=== PATIENT | female | born 1945 | race Caucasian/White ===

== ENCOUNTER → 2017-04-19 | Outpatient (CLI) | payer OTHER, BC ==
[~2017-04-19] MED LIST: OPTIRAY 320 IV PRN
--- NOTE | 2017-04-19 12:26 | DIAGNOSTIC IMAGING REPORT ---
CT SCAN OF THE ABDOMEN AND PELVIS WITH IV CONTRAST CLINICAL HISTORY: Small bowel obstruction. Diarrhea. COMPARISON STUDY: No priors. TECHNIQUE: Following the IV administration of 93 cc of Optiray 320, CT scan of the abdomen and pelvis is performed from the lung bases to the proximal femora. Images are reviewed in the axial, sagittal, and coronal planes. IV contrast was administered without complication. A dose lowering technique was utilized adhering to the principles of ALARA. CT DOSE: 578.69 mGy.cm FINDINGS: Lung bases: The heart is normal in size and without pericardial effusion. Fat-containing Bochdalek hernias are seen at both lung bases. There are trace pleural effusions. Foci of scarring versus atelectasis are seen in the lower lobes. No airspace consolidation is seen typical for pneumonia. A tiny hiatal hernia is noted. Liver: The contrast-enhanced liver is enlarged, measuring 22 cm in length. The liver demonstrates diffusely diminished attenuation consistent with hepatic steatosis. There is no intrahepatic biliary ductal dilatation. The hepatic veins and portal veins are patent. A 1.3 cm cyst is noted in the left lobe. Gallbladder: Surgically absent noting clips in the gallbladder fossa. Spleen: The spleen is enlarged, measuring 14.8 cm in length. Pancreas: Unremarkable. Adrenal glands: Unremarkable. Kidneys: The contrast enhanced kidneys demonstrate cortical atrophy. There is mild bilateral hydronephrosis. The ureters are normal in caliber. The kidneys enhance symmetrically. Scattered subcentimeter cortical hypodensities likely represent cysts but are too small for definitive characterization. Abdominal vasculature: The abdominal aorta is normal in course and caliber noting mild to moderate atherosclerotic calcification. Bowel: There is no bowel obstruction. Enteric contrast reaches the rectum. Mild wall thickening and fold thickening is suggested involving the right colon, greatest in the cecum. The appendix is not identified and reported surgically absent. Peritoneum: There is no intraperitoneal free air or abdominal ascites. Lymphadenopathy: There are mildly enlarged upper abdominal lymph nodes. Nodes in the arnaud hepatis measure up to 1.5 cm in short axis. An aortocaval node measures 1.1 cm in short axis. Shotty retroperitoneal lymph nodes are identified. These are subcentimeter in size. Pelvic viscera: The bladder is normal as visualized. The uterus is surgically absent. No adnexal lesion is seen. Skeletal structures: The skeletal structures are osteopenic. There is mild lumbosacral spondylosis and scoliosis. No lytic or blastic lesions are seen. IMPRESSION: 1. There is mild bilateral hydronephrosis. The ureters are normal in caliber and no cause of obstruction is apparent. Clinical correlation will be required. 2. Mild wall thickening and fold thickening is suggested involving the cecum and right colon. Correlate clinically for evidence of a mild nonspecific colitis. No bowel obstruction is seen. 3. Hepatomegaly and hepatic steatosis. 4. Splenomegaly. 5. Trace pleural effusions. 6. Mildly enlarged lymph nodes in the upper abdomen are nonspecific and may be related to hepatic steatosis. 7. Additional findings as above. Electronically signed by: Jude Borges M.D. 04/19/2017 12:25 PM Dictated Date/Time: 04/19/2017 12:15 PM
== END | disposition home or self-care (01) ==
LOC: C.CTS 09:43
PROVIDERS: ATTEND Colon & Rectal Surgery
DX: R19.7 Diarrhea, unspecified (principal)

== ENCOUNTER → 2017-04-22 | Outpatient (CLI) | payer OTHER, BC ==
--- NOTE | 2017-04-22 09:00 | DIAGNOSTIC IMAGING REPORT ---
SINGLE CONTRAST GASTROGRAFIN ENEMA CLINICAL HISTORY: Chronic diarrhea. Reported history of previous colonic rupture. COMPARISON STUDY: Abdominal CT dated 04/19/2017. PROCEDURE: A advance scout radiograph is obtained. A catheter was placed into the rectum and a single contrast barium enema is performed by infusing approximately 600 cc of dilute Gastroview into the colon under gravity. Spot fluoroscopic views of the colon were obtained in multiple obliquities. Overhead radiographs are performed pre and postevacuation in multiple obliquities. FINDINGS: An abdominal advance scout radiograph shows a nonobstructed abdominal bowel gas pattern. Cholecystectomy clips are seen in the right upper quadrant. There are numerous calcified phleboliths in the pelvis. The skeletal structures are osteopenic. Mild lumbosacral spondylosis is observed. On the enema images there is smooth contrast opacification of the colon which is normal in caliber and position. There is no evidence of mass lesion or stricture on this single contrast examination. No evidence of mucosal lesion is identified. There is no evidence of wall thickening. No significant diverticular disease is seen. IMPRESSION: No significant colonic abnormality is seen on this single contrast Gastrografin enema. Dictated: 04/22/2017 8:31 AM Transcribed: 04/22/2017 9:00 AM Vinay Electronically signed by: Jude Borges M.D. 04/22/2017 9:07 AM Dictated Date/Time: 04/22/2017 8:31 AM
== END | disposition home or self-care (01) ==
LOC: C.RAD 07:26
PROVIDERS: ATTEND Colon & Rectal Surgery
DX: R19.7 Diarrhea, unspecified (principal)

== ENCOUNTER 2017-05-20 13:14 | Day surgery (SDC) | payer OTHER, BC ==
[2017-05-11 10:14] VITALS: Ht 152.4 cm; Wt 69.1 kg
[~2017-05-20] VITALS: Ht 152.4 cm; Wt 69.1 kg
[~2017-05-20 13:14] MED LIST changes: +CHOL1000 PO; +DIAZ5TAB PO; +GABA1CAP5 PO; +MIRT45TA3 PO; +OMEP40CA41 PO; -OPTIRAY 320 IV PRN; +QUET1TAB37 PO; +TEMO1CAP11 PO; +VITAMIN B12 INJ; +VNTHFA/IN INH; +ZOLP12.5 PO
[2017-05-20] MEDS ORDERED: SUCCINYLCHOLINE CHLORIDE 20 MG/ML 10 ML VIAL IV ONE (13:55)
[2017-05-20] MEDS ORDERED: PROPOFOL IV EMULSION 10 MG/ML 20 ML VIAL IV ONE (13:55)
[2017-05-20] MEDS ORDERED: LIDOCAINE 2% 20 MG/ML 5ML SYR IV ONE (13:55)
--- NOTE | 2017-05-20 14:03 | Endo History and Physical ---
History & Physical Date of Service: May 20, 2017. Chief Complaint: abnormal CT Referring Physician: Dr. Zoran Staley History of Present Illness For colonoscopy Past Surgical History Hx Cardiac Surgery: No Hx Internal Defibrillator: No Hx Pacemaker: No Hx Abdominal Surgery: Yes (GRACE BSO, COLON RESECTION X 2 (RUPTURE REPAIR), LYSIS OF ADHESIONS X 4) Hx of Implantable Prosthesis: No Hx Post-Op Nausea and Vomiting: No Hx Cancer Surgery: No Hx Thoracic Surgery: No Family History Colon CA Social History Smoking Status: Never Smoker Hx Substance Use: No Hx Alcohol Use: No Allergies Coded Allergies: Acetaminophen (Verified Allergy, Unknown, VOMITTING, 05/11/17) Codeine (Verified Allergy, Unknown, HEADACHE, VOMITTING, 05/11/17) Erythromycin (Verified Allergy, Unknown, ANAPHYLAXIS, 05/11/17) Influenza Vaccines (Verified Allergy, Unknown, "HAS A REACTION, NOT ALLOWED TO GET", 05/11/17) Morphine (Verified Allergy, Unknown, SEVERE HEADACHE, VOMITTING, 05/11/17) Oxycodone (Verified Allergy, Unknown, VOMITTING, 05/11/17) Uncoded Allergies: DARVOCET (Allergy, Unknown, SEVERE HEADACHE, 05/11/17) Current Medications Reported Home Medications Medications Dose Route/Sig Max Daily Dose Days Date Category Ventolin Hfa (Albuterol) 200 Puffs/80183 Mcg Aers 2-4 Puffs INH Q6H PRN 05/11/17 Reported Temodar (Temozolomide) 5 Mg Cap 1 Cap PO HS 05/11/17 Reported Prilosec (Omeprazole) 40 Mg Cap 40 Mg PO QAM 05/11/17 Reported [Vitamin B12] 1 Dose INJ MONTHLY 05/11/17 Reported Vitamin D3 (Cholecalciferol) 1,000 Unit Tab 1 Tab PO DAILY 05/11/17 Reported Ambien Cr (Zolpidem Tartrate) 12.5 Mg Tabcr 12.5 Mg PO HS 05/11/17 Reported Valium (Diazepam) 5 Mg Tab 5 Mg PO 5XD PRN 05/11/17 Reported Mirtazapine 45 Mg Tab 1 Tab PO QPM 05/11/17 Reported Seroquel (Quetiapine Fumarate) 300 Mg Tab 300 Mg PO HS 05/11/17 Reported Neurontin (Gabapentin) 400 Mg Cap 400 Mg PO TID 05/11/17 Reported Vital Signs Weight (Kilograms): 69.09 Height (Feet): 5 Height (Inches): 0 Date Time Temp Pulse Resp B/P (MAP) Pulse Ox O2 Delivery O2 Flow Rate FiO2 05/20/17 13:49 37 84 18 137/70 (92) 95 Room Air Physical Exam General Appearance: + obese Respiratory/Chest: Respiratory effort: no dyspnea Cardiovascular: Heart Auscultation: RRR Abdomen: Inspection & Palpation: LUQ tenderness Assessment and Plan Abd pain for colonoscopy
[2017-05-20] MEDS ORDERED: MIDAZOLAM HCL 1 MG/ML 2ML VIAL ONE (14:18)
[2017-05-20] MEDS ORDERED: FENTANYL CITRATE INJ 50 MCG/1 ML 2 ML VIAL ONE ×2 (14:35→15:21)
[2017-05-20] MEDS ORDERED: DEXAMETHASONE SOD INJ 4 MG/ML VIAL ONE (14:48)
[2017-05-20] MEDS ORDERED: ONDANSETRON INJ 2 MG/ML 2 ML VIAL ONE (14:48)
--- NOTE | 2017-05-20 15:05 | Discharge Instructions ---
Endoscopy Patient Instructions Date / Procedure(s) Performed May 20, 2017. Colonoscopy Allergy Information Coded Allergies: Acetaminophen (Verified Allergy, Unknown, VOMITTING, 05/11/17) Codeine (Verified Allergy, Unknown, HEADACHE, VOMITTING, 05/11/17) Erythromycin (Verified Allergy, Unknown, ANAPHYLAXIS, 05/11/17) Influenza Vaccines (Verified Allergy, Unknown, "HAS A REACTION, NOT ALLOWED TO GET", 05/11/17) Morphine (Verified Allergy, Unknown, SEVERE HEADACHE, VOMITTING, 05/11/17) Oxycodone (Verified Allergy, Unknown, VOMITTING, 05/11/17) Uncoded Allergies: DARVOCET (Allergy, Unknown, SEVERE HEADACHE, 05/11/17) Discharge Date / Findings May 20, 2017. Normal colon, perianal skin irritation Medication Instructions Restart Stopped Medication(s): resume meds Reported Home Medications Medications Dose Route/Sig Max Daily Dose Days Date Category Ventolin Hfa (Albuterol) 200 Puffs/93847 Mcg Aers 2-4 Puffs INH Q6H PRN 05/11/17 Reported Temodar (Temozolomide) 5 Mg Cap 1 Cap PO HS 05/11/17 Reported Prilosec (Omeprazole) 40 Mg Cap 40 Mg PO QAM 05/11/17 Reported [Vitamin B12] 1 Dose INJ MONTHLY 05/11/17 Reported Vitamin D3 (Cholecalciferol) 1,000 Unit Tab 1 Tab PO DAILY 05/11/17 Reported Ambien Cr (Zolpidem Tartrate) 12.5 Mg Tabcr 12.5 Mg PO HS 05/11/17 Reported Valium (Diazepam) 5 Mg Tab 5 Mg PO 5XD PRN 05/11/17 Reported Mirtazapine 45 Mg Tab 1 Tab PO QPM 05/11/17 Reported Seroquel (Quetiapine Fumarate) 300 Mg Tab 300 Mg PO HS 05/11/17 Reported Neurontin (Gabapentin) 400 Mg Cap 400 Mg PO TID 05/11/17 Reported Provider Instructions Activity Restrictions - No exercising or heavy lifting for 24 hours. - Do not drink alcohol the day of the procedure. - Do not drive a car or operate machinery until the day after the procedure. - Do not make any important decisions or sign important papers in 24 hours after the procedure. Following Day: - Return to full activity which may include returning to work/school. Diet Start your diet with liquids and light foods (jello, soup, juice, toast). Then eat your usual diet if not nauseated. Treatment For Common After Affects For mild abdominal pain, bloating, or excessive gas: - Rest - Eat lightly - Lie on right side Follow-Up Information Follow-up with Dr. Zoran Staley as scheduled Anesthesia Information What You Should Know You have had a procedure that required some medicine to reduce anxiety and discomfort. This treatment is called moderate sedation. After receiving the treatment, you may be sleepy, but you will be able to breathe on your own. The effects of the treatment may last for several hours. Follow these instructions along with Activity/Diet recommendations noted above: * Do NOT do anything where dizziness or clumsiness would be dangerous. * Rest quietly at home today, then you can be up and about tomorrow. * Have a responsible person stay with you the rest of today. * You may have had an I.V. today. If so, you may take the dressing off later today. Recommendations Call your doctor if: * Trouble breathing * Continuous vomiting for more than 24 hours * Temperature above 101 degrees * Severe abdominal pain or bloating * Pain not relieved by pain medicine ordered * There is increased drainage or redness from any incision * A large amount of rectal bleeding greater than 2-3 tablespoons. (If you had a polyp/s removed or have hemorrhoids, a small amount of blood - from the rectum is to be expected.) * You have any unanswered questions or concerns. IN THE EVENT OF A SERIOUS EMERGENCY, GO TO THE NEAREST EMERGENCY ROOM Your discharge instructions were prepared by provider Abad Yadav. Patient Instructions Signature Page Amanda Boateng Patient (or Guardian) Signature/Date: I have read and understand the instructions given to me by my caregivers. Caregiver/RN/Doctor Signature/Date: The above-named patient and/or guardian has received patient instructions on this date. + Original Patient Signature Page (only) stays with chart. Please make copy for patient.
--- NOTE | 2017-05-20 15:09 | GI REPORT ---
Procedure Date: 05/20/2017 2:05 PM Procedure: Colonoscopy Indications: Abdominal pain in the left upper quadrant, Abnormal CT of the GI tract Medicines: General Anesthesia Complications: No immediate complications. Estimated Blood Loss: Estimated blood loss: none. Procedure: Pre-Anesthesia Assessment: - Prior to the procedure, a History and Physical was performed, and patient medications, allergies and sensitivities were reviewed. The patient's tolerance of previous anesthesia was reviewed. - The risks and benefits of the procedure and the sedation options and risks were discussed with the patient. All questions were answered and informed consent was obtained. After I obtained informed consent, the scope was passed under direct vision. Throughout the procedure, the patient's blood pressure, pulse, and oxygen saturations were monitored continuously. The scope was introduced through the anus and advanced to the terminal ileum. The colonoscopy was performed without difficulty. The patient tolerated the procedure well. The quality of the bowel preparation was good. Findings: The terminal ileum appeared normal. The entire examined colon appeared normal. The perianal exam findings include a decubitus ulceration. Impression: - The examined portion of the ileum was normal. - The entire examined colon is normal. - Decubitus ulceration found on perianal exam. - No specimens collected. Recommendation: - Discharge patient to home (ambulatory). - Continue present medications. - Return to referring physician as previously scheduled. Abad Yadav M.D. Abad Yadav MD 05/20/2017 3:08:40 PM This report has been signed electronically. Note Initiated On: 05/20/2017 2:05 PM I attest to the content of the Intraoperative Record and orders documented therein, exceptions below
[2017-05-20] MEDS ORDERED: LABETALOL HCL IV 5 MG/ML 20ML IV ONE (15:17)
[2017-05-20] MEDS ORDERED: ONDANSETRON INJ 2 MG/ML 2 ML VIAL IV PRN (15:30)
[2017-05-20] MEDS ORDERED: FENTANYL CITRATE INJ 50 MCG/1 ML 2 ML VIAL IV PRN (15:30)
[2017-05-20] MEDS ORDERED: ATROPINE SULFATE 0.1 MG/ML 5ML SYR IV PRN (15:30)
[2017-05-20] MEDS ORDERED: EpHEDrine SULFATE INJ 50 MG/ML AMP IV PRN (15:30)
[2017-05-20 15:53] VITALS: BP 103/59; PULSE 74; TEMP 36.3; O2SAT 92
[2017-05-20 16:22] VITALS: BP 119/57; PULSE 65; TEMP 36.3; O2SAT 95
[2017-05-20 16:50] VITALS: BP 126/66; PULSE 78; TEMP 36.4; O2SAT 95
[2017-05-20 17:10] VITALS: BP 131/65; PULSE 78; TEMP 36.5; O2SAT 95
--- NOTE | 2017-05-20 17:40 | Anesthesiology Progress Note ---
Anesthesia Post Op Note Date & Time May 20, 2017 at 17:40 Vital Signs Pain Intensity: 6 Vital Signs Past 12 Hours Date Time Temp Pulse Resp B/P (MAP) Pulse Ox O2 Delivery O2 Flow Rate FiO2 05/20/17 16:50 36.4 78 24 126/66 95 Nasal Cannula 1 05/20/17 16:22 36.3 65 28 119/57 95 Nasal Cannula 2 05/20/17 15:53 36.3 74 20 103/59 92 Room Air 05/20/17 15:45 36.5 70 16 102/65 94 Room Air 05/20/17 15:35 36.5 68 16 103/50 94 Room Air 05/20/17 15:25 70 16 139/74 95 Room Air 05/20/17 15:15 68 16 165/70 95 Room Air 05/20/17 15:07 37.1 74 16 180/91 98 Oxymask 10 05/20/17 13:49 37 84 18 137/70 (92) 95 Room Air Notes Mental Status: alert / awake / arousable, participated in evaluation Pt Amnestic to Procedure: Yes Nausea / Vomiting: adequately controlled Pain: adequately controlled Airway Patency, RR, SpO2: stable & adequate BP & HR: stable & adequate Hydration State: stable & adequate Anesthetic Complications: no major complications apparent
== END 2017-05-20 17:35 | disposition home or self-care (01) ==
LOC: C.GI 13:14
PROVIDERS: ATTEND Internal Medicine Gastroenterology
DX: R10.11 Right upper quadrant pain (principal); R93.3 Abnormal findings on diagnostic imaging of other parts of digestive tract; J45.909 Unspecified asthma, uncomplicated; F32.9 Major depressive disorder, single episode, unspecified; F41.9 Anxiety disorder, unspecified; Z88.5 Allergy status to narcotic agent; Z98.41 Cataract extraction status, right eye; Z98.42 Cataract extraction status, left eye; Z79.899 Other long term (current) drug therapy; Z98.890 Other specified postprocedural states; Z80.0 Family history of malignant neoplasm of digestive organs

== ENCOUNTER 2017-06-28 07:43 | Day surgery (SDC) | payer OTHER, BC ==
[~2017-06-28] VITALS: Ht 152.4 cm; Wt 70.0 kg
[~2017-06-28 07:43] MED LIST changes: +GABA-1220 PO; -GABA1CAP5 PO
[2017-06-28 08:41] VITALS: BP 133/84; PULSE 76; TEMP 36.7; O2SAT 95; Ht 152.4 cm; Wt 70.0 kg
[2017-06-28] MEDS ORDERED: IMMU1INJ IV (08:41)
[2017-06-28 12:05] VITALS: BP 131/82; PULSE 75; TEMP 36.7; O2SAT 93
--- NOTE | 2017-07-06 15:47 | OPERATIVE REPORT ---
DATE OF OPERATION: 07/06/2017 PROCEDURE: Hydrogen breath test. INDICATIONS: The patient has symptoms suggesting small bowel bacterial overgrowth. DESCRIPTION OF PROCEDURE: The patient consumed 10 grams of lactulose and had hydrogen and CO2 monitoring every 20 minutes for 3 hours. At baseline, her hydrogen level was 0. After 100 minutes, she developed some diarrhea, bloating and nausea, but her hydrogen levels only went up to a maximum of 12, which was the very last measurement at 3 hours. Her measurements every 20 minutes were 2, at baseline 3, 3, 4, 5, 6, 10, 8, 12, during the monitor. This is not consistent with small bowel bacterial overgrowth. IMPRESSION: Negative lactulose breath test for small bowel bacterial overgrowth. I attest to the content of the Intraoperative Record and any orders documented therein. Any exception s are noted below.
== END 2017-07-13 14:53 | disposition home or self-care (01) ==
LOC: C.MTU 07:43
PROVIDERS: ATTEND Internal Medicine Gastroenterology
DX: R19.7 Diarrhea, unspecified (principal)